=== PATIENT | male | born 1935 | race Caucasian/White ===

== ENCOUNTER 2018-12-15 12:08 | Inpatient (IN) ==
[2018-12-15] MEDS ORDERED: Isovue-370 500 ML BOTTLE IVP ONE (12:33)
[2018-12-15] MEDS ORDERED: 0.9 % Sodium Chloride 1,000 ML IVC ONE (12:34)
--- NOTE | 2018-12-15 12:52 | Emergency Department Note ---
Disposition Clinical Impression: Perianal abscess Disposition: Admitted As Inpatient Condition: Undetermined Time of Disposition: 15:47 Skin/Abscess/FB HPI Chief complaint: ED Skin/Abscess/Foreign Body Stated complaint: perirectal abscess Time Seen by Provider: 12/15/18 12:15 Source: patient Mode of arrival: ambulatory Limitations: no limitations Nursing Notes Reviewed: Yes Vital Signs Reviewed: Yes HPI Narrative: 83-year-old male arrives to the emergency department complaining of pain around his rectum. The patient states he started having some constipation and pain with defecation as well as a burning sensation that started a few days ago. Is progressively worsened. The patient states he put a salve on it which did not help. Went to urgent care earlier today and was diagnosed with a perirectal abscess was sent here to the emergency part for evaluation. The patient is in a large amount of pain with any movement or sitting down secondary to the swelling and pain. The patient was noted to be tachycardic but he has been afebrile. The patient is otherwise uncomfortable on evaluation in the room but denies any other complaints at this time. He states he has never had abscesses like this in the past. No history of inflammatory bowel disease. Home Medications Medication Instructions Recorded Confirmed Cholecalciferol (Vitamin D3) 1,000 unit PO DAILY 03/15/16 12/15/18 [Vitamin D3] Docusate [Colace] 100 mg PO DAILY 05/31/16 12/15/18 Fish Oil 1 cap PO DAILY 05/31/16 12/15/18 Vitamin B Complex 1 each PO DAILY 12/05/16 12/15/18 Atorvastatin [Lipitor] 10 mg PO HS 12/15/18 12/15/18 Lisinopril [Zestril] 5 mg PO DAILY 12/15/18 12/15/18 Allergies Allergy/AdvReac Type Severity Reaction Status Date / Time No Known Allergies Allergy Verified 06/20/17 18:22 All systems ED: reviewed and negative except as stated. Constitutional: Denies: fever, chills, weakness ENT ED: Denies: dysphagia Cardiovascular: Denies: chest pain Respiratory: Denies: dyspnea Gastrointestinal: Reports: constipation. Denies: abdominal pain, nausea, vomiting, hematemesis, melena, hematochezia Genitourinary: Denies: urgency, dysuria Musculoskeletal: Denies: back pain Integumentary: Denies: rash Neurological: Denies: headache Past Medical History - Past Medical History Attestation: Yes The following information was validated with the patient. Source: patient, old records reviewed Medical history: Reports: hypertension Surgical history: Reports: no surgical history Psychiatric history: Reports: no psych history - Social History Smoking Status: Never smoker Smokeless Tobacco Status: No Alcohol use: Reports: occasionally Drug use: Reports: none Physical Exam - General Limitations: no limitations General appearance: alert, in no apparent distress - Head Head exam: atraumatic, normocephalic, normal inspection - Eye Eye exam: Present: normal appearance, PERRL, EOMI - ENT ENT exam: normal exam, normal oropharynx, mucous membranes moist - Neck Neck exam: Present: normal inspection, full ROM, trachea midline - Chest Chest inspection: Present: normal inspection, symmetric chest wall rise - Respiratory Respiratory exam: Present: normal lung sounds bilaterally - Cardiovascular Cardiovascular exam: Present: normal rhythm, tachycardia - Abdominal Exam Abdominal exam: Present: soft, Non-Tender. Absent: tenderness, distention, guarding, rebound, rigidity - Rectal Exam Rectal exam: Present: tenderness, other (Patient has a large indurated area on the right side of his perirectal region. It is roughly 10-15 cm total in length and 4-6 cm in width. Very tender to palpation. Obvious fluid collection noted within. Noted within the perirectal region.) - Extremities Exam Extremities exam: Present: normal inspection, full ROM, normal capillary refill. Absent: tenderness, pedal edema - Neurological Exam Neurological exam: Present: alert, oriented X3 - Skin Skin exam: Present: warm, dry, intact, normal color Course - Reevaluation(s) Reevaluation #1: CT scan of the patient's abdomen and pelvis reveals a 8.8 x 3.4 x 10.8 cm abscess across his midline in the perianal region. Patient was found to have a leukocytosis of 31,000. He was started on Vancomycin and Zosyn here in the emergency department. Consultation with general surgery. Disposition is pending on conversation with general surgery. Time: 14:38 - Consultations Consultation #1: Patient case was discussed with Dr. Wylie in general surgery. He will see the patient in ED for evaluation. Requested coagulation studies. These were ordered. Disposition pending per discussion with surgery. Time: 14:38 Vital Signs Temperature 98.2 F 12/15/18 12:08 Pulse Rate 108 12/15/18 12:08 Respiratory Rate 18 12/15/18 12:08 Blood Pressure 159/79 12/15/18 12:08 O2 Sat by Pulse Oximetry 99 12/15/18 12:08 Temperature 98.2 F 12/15/18 12:08 Pulse Rate 91 12/15/18 15:33 Respiratory Rate 18 12/15/18 15:33 Blood Pressure 123/61 12/15/18 15:33 O2 Sat by Pulse Oximetry 100 12/15/18 15:33 Oxygen Delivery Oxygen Delivery Room Air Skin/Abscess/Foreign Body - MDM Narrative Medical decision making narrative: Patient's workup in the emergency department demonstrates a very large perianal abscess. Given the fact that it crosses midline combined with the patient's fever that he later disclose, she was started on IV antibiotics and will be admitted to general surgery service. Accepted by Dr. Wylie. No further recommendations at this time. - Lab Data Lab results reviewed: Yes I reviewed the patient's lab results. Result diagrams: 12/15/18 12:40 12/15/18 12:40 Lab Results 12/15/18 12/15/18 12/15/18 Range/Units 12:40 12:40 12:40 WBC 31.9 H* (4.3-11.1) K/mcL RBC 3.99 L (4.19-5.50) M/mcL Hgb 12.0 L (12.9-16.9) g/dL Hct 37.3 L (37.5-50.1) % MCV 93.5 (83.0-100.0) fL MCH 30.1 (28.0-33.3) pg MCHC 32.2 (31.6-35.5) g/dL RDW 13.5 (11.5-14.5) % Plt Count 383 (140-400) K/mcL MPV 9.6 (9.4-12.4) fL Immature Gran % 0.9 (0-4) % Seg Neutrophils % 65.3 % Lymphocytes % 26.3 % Monocytes % 7.4 % Eosinophils % 0.0 % Basophils % 0.1 % Neutrophils # 20.8 H (1.6-8.9) K/mcL Lymphocytes # 8.4 H (0.6-4.6) K/mcL Monocytes # 2.4 H (0.0-1.3) K/mcL Eosinophils # 0.0 (0.0-0.6) K/mcL Basophils # 0.0 (0.0-0.2) K/mcL Reactive Lymphocytes Present A (Not Present) Platelet Estimate Normal (Normal) PT (9.4-12.1) Seconds INR APTT (26.0-36.0) Seconds Sodium 133 L (136-145) mEq/L Potassium 4.0 (3.5-5.1) mEq/L Chloride 98 (98-107) mEq/L Carbon Dioxide 27 (23-29) mEq/L BUN 20 (8-23) mg/dL Creatinine 0.94 (0.70-1.30) mg/dL Est GFR ( Amer) > 60 (> 60) Est GFR (Non-Af Amer) > 60 (> 60) BUN/Creatinine Ratio 21 (6-26) Glucose 131 H (70-105) mg/dL Calculated Osmolality 280 (280-300) Lactic Acid 1.4 (0.5-2.2) mmol/L Calcium 9.4 (8.6-10.3) mg/dL 12/15/18 Range/Units 12:40 WBC (4.3-11.1) K/mcL RBC (4.19-5.50) M/mcL Hgb (12.9-16.9) g/dL Hct (37.5-50.1) % MCV (83.0-100.0) fL MCH (28.0-33.3) pg MCHC (31.6-35.5) g/dL RDW (11.5-14.5) % Plt Count (140-400) K/mcL MPV (9.4-12.4) fL Immature Gran % (0-4) % Seg Neutrophils % % Lymphocytes % % Monocytes % % Eosinophils % % Basophils % % Neutrophils # (1.6-8.9) K/mcL Lymphocytes # (0.6-4.6) K/mcL Monocytes # (0.0-1.3) K/mcL Eosinophils # (0.0-0.6) K/mcL Basophils # (0.0-0.2) K/mcL Reactive Lymphocytes (Not Present) Platelet Estimate (Normal) PT 14.0 H (9.4-12.1) Seconds INR 1.2 APTT 27.2 (26.0-36.0) Seconds Sodium (136-145) mEq/L Potassium (3.5-5.1) mEq/L Chloride (98-107) mEq/L Carbon Dioxide (23-29) mEq/L BUN (8-23) mg/dL Creatinine (0.70-1.30) mg/dL Est GFR ( Amer) (> 60) Est GFR (Non-Af Amer) (> 60) BUN/Creatinine Ratio (6-26) Glucose (70-105) mg/dL Calculated Osmolality (280-300) Lactic Acid (0.5-2.2) mmol/L Calcium (8.6-10.3) mg/dL - Radiology Data Radiology results reviewed: Yes I reviewed the patient's radiology results. Abdomen/Pelvis CT 12/15/18 12:33 IMPRESSION: Very large perianal abscess(es) predominantly on the right. No acute intra-abdominal or intrapelvic process evident. Calcific atherosclerotic disease aorta. D/ / Michi Galan / Michi Galan Interpreting Provider: Michi Galan Attestation Statement - Attestation Attestation: I, Kelby Duenas, examined this patient and my medical decision-making was reviewed with the MACHINE TOOL BUILDER/PA/Advanced Practice Nurse/Resident Physician. I agree with the documented findings, disposition and treatment plan as described except to the extent set forth below. 83-year-old male presents emergency Department with concerns of pain in the rectal area. Patient states that he developed pain with sitting, walking, bowel movements over the past 3-4 days. Patient thought initially that it was a thrombosed hemorrhoid however he does not have a history of previous hemorrhoids. Patient reported a fever intermittent over the past 2 days which reached a MAXIMUM TEMPERATURE of 102.3. Patient was afebrile on initial evaluation emergency department. Patient has palpable area of induration and fluctuance on rectal exam. CT of the abdomen and pelvis revealed large abscess. Patient was updated regarding CT results. We spoke with the surgeon regarding the patient's case and presentation who evaluated at bedside and will take him to the OR. Vancomycin and Zosyn were started in the emergency department.
[2018-12-15] MEDS ORDERED: *HR* FentaNYL (PF) 100 MCG/2 ML VIAL IVP ONE (12:57)
[2018-12-15 12:58] LABS: Immature Granulocytes % 0.9 % (0-4); Monocytes % 7.4 %
[2018-12-15 12:59] LABS: Basophils % 0.1 %; Hematocrit 37.3 % (37.5-50.1); Lymphocytes # 8.4 K/mcL (0.6-4.6); Lymphocytes % 26.3 %; Mean Corpuscular HGB Conc 32.2 g/dL (31.6-35.5); Mean Corpuscular Hemoglobin 30.1 pg (28.0-33.3); Mean Corpuscular Volume 93.5 fL (83.0-100.0); Mean Platelet Volume 9.6 fL (9.4-12.4); Monocytes # 2.4 K/mcL (0.0-1.3); Neutrophils # 20.8 K/mcL (1.6-8.9); Platelet Count 383 K/mcL (140-400); Red Blood Count 3.99 M/mcL (4.19-5.50); Red Cell Distribution Width 13.5 % (11.5-14.5); Segmented Neutrophils % 65.3 %
[2018-12-15 13:09] LABS: White Blood Count 31.9 K/mcL (4.3-11.1)
[2018-12-15 13:11] LABS: Platelet Estimate Normal (Normal); Reactive Lymphocytes Present (Not Present)
[2018-12-15 13:16] LABS: BUN/Creatinine Ratio 21 (6-26); Blood Urea Nitrogen 20 mg/dL (8-23); Calcium 9.4 mg/dL (8.6-10.3); Carbon Dioxide 27 mEq/L (23-29); Chloride 98 mEq/L (98-107); Glucose 131 mg/dL (70-105); Osmolality,Calculated 280 (280-300); Sodium 133 mEq/L (136-145); eGFR For African Americans > 60 (> 60); eGFR For Non-African Americans > 60 (> 60)
[2018-12-15] MEDS ORDERED: Piperacillin/Tazobactam 3.375 GM in 0.9 % Sodium Chloride Mini Bag 100 ML IVPB ONE (14:37)
[2018-12-15 14:55] LABS: INR 1.2
[2018-12-15 14:58] LABS: Activated Partial Thrombo Time 27.2 Seconds (26.0-36.0)
[2018-12-15] MEDS ORDERED: *HR* Rocuronium Bromide 50 MG/5 ML VIAL ONE (15:29)
[2018-12-15] MEDS ORDERED: *HR* FentaNYL (PF) 100 MCG/2 ML VIAL ONE ×2 (15:29→17:26)
[2018-12-15] MEDS ORDERED: Lidocaine -MPF 2% 2 ML VIAL ONE (15:29)
[2018-12-15] MEDS ORDERED: *HR* Succinylcholine 200 MG/10 ML VIAL IVP ONE (15:29)
[2018-12-15] MEDS ORDERED: *HR* Propofol 200 MG/20 ML VIAL IVP ONE (15:29)
[2018-12-15] MEDS ORDERED: Lidocaine -MPF 4% 5 ML AMPUL ONE (15:29)
--- NOTE | 2018-12-15 15:49 | Acute Care Surgery H&P ---
<Aston Wylie - Last Filed: 12/15/18 16:07> Date of Encounter: 12/15/18 History of Present Illness HPI: Mr. Dexter is a 83 year old male Medications and Allergies Cholecalciferol (Vitamin D3) [Vitamin D3] 1,000 unit PO DAILY 03/15/16 [History] Docusate [Colace] 100 mg PO DAILY 05/31/16 [History] Fish Oil 1 cap PO DAILY 05/31/16 [History] Vitamin B Complex 1 each PO DAILY 12/05/16 [History] Atorvastatin [Lipitor] 10 mg PO HS 12/15/18 [History] Lisinopril [Zestril] 5 mg PO DAILY 12/15/18 [History] Allergy/AdvReac Type Severity Reaction Status Date / Time No Known Allergies Allergy Verified 06/20/17 18:22 Review of Systems All systems PM: The remainder of the systems were reviewed and are negative General Surgery Exam Initial Vital Signs Temp Pulse Resp BP Pulse Ox 98.2 F 108 18 159/79 99 12/15/18 12:08 12/15/18 12:08 12/15/18 12:08 12/15/18 12:08 12/15/18 12:08 Results - Labs 12/15/18 12:40 12/15/18 12:40 Abnormal lab results WBC 31.9 K/mcL (4.3-11.1) H* 12/15/18 12:40 RBC 3.99 M/mcL (4.19-5.50) L 12/15/18 12:40 Hgb 12.0 g/dL (12.9-16.9) L 12/15/18 12:40 Hct 37.3 % (37.5-50.1) L 12/15/18 12:40 20.8 K/mcL (1.6-8.9) H 12/15/18 12:40 8.4 K/mcL (0.6-4.6) H 12/15/18 12:40 2.4 K/mcL (0.0-1.3) H 12/15/18 12:40 Present (Not Present) A 12/15/18 12:40 PT 14.0 Seconds (9.4-12.1) H 12/15/18 12:40 Sodium 133 mEq/L (136-145) L 12/15/18 12:40 Glucose 131 mg/dL (70-105) H 12/15/18 12:40 Diabetes panel 12/15/18 Range/Units 12:40 Sodium 133 L (136-145) mEq/L Potassium 4.0 (3.5-5.1) mEq/L Chloride 98 (98-107) mEq/L Carbon Dioxide 27 (23-29) mEq/L BUN 20 (8-23) mg/dL Creatinine 0.94 (0.70-1.30) mg/dL Glucose 131 H (70-105) mg/dL Calcium 9.4 (8.6-10.3) mg/dL Calcium panel 12/15/18 Range/Units 12:40 Calcium 9.4 (8.6-10.3) mg/dL Pituitary panel 12/15/18 Range/Units 12:40 Sodium 133 L (136-145) mEq/L Potassium 4.0 (3.5-5.1) mEq/L Chloride 98 (98-107) mEq/L Carbon Dioxide 27 (23-29) mEq/L BUN 20 (8-23) mg/dL Creatinine 0.94 (0.70-1.30) mg/dL Glucose 131 H (70-105) mg/dL Calcium 9.4 (8.6-10.3) mg/dL Adrenal panel 12/15/18 Range/Units 12:40 Sodium 133 L (136-145) mEq/L Potassium 4.0 (3.5-5.1) mEq/L Chloride 98 (98-107) mEq/L Carbon Dioxide 27 (23-29) mEq/L BUN 20 (8-23) mg/dL Creatinine 0.94 (0.70-1.30) mg/dL Glucose 131 H (70-105) mg/dL Calcium 9.4 (8.6-10.3) mg/dL All other labs normal. - Attending Attestation I examined this patient and my medical decision-making was reviewed with the Resident Physician. I agree with the documented findings, disposition and parris tment plan as described except to the extent set forth below. I personally reviewed the above assessment and evaluation with the resident and was present and agree with the above plan. Patient has had symptoms of a knot and pressure sensation in the buttock region for week. He is been having symptoms of constipation and has not had a bowel movement in a week. He normally has a bowel movement 1-2 times a day. The pain and pressure sensation worsened over the next several days and he presented himself to the emergency room. He does have a history of CLL and has a baseline elevation of his white count around 20,000 range. His current white count is approximately 34,000. CT scan was personally reviewed by me (images and report) which demonstrates a perianal/perirectal abscess. Our plan is to start IV fluids and IV antibiotics and perform an incision and drainage. Both patient and family were agree with the above plan. <Madyson Marte - Last Filed: 12/15/18 16:21> Date of Encounter: 12/15/18 Time of Encounter: 15:32 Assessment and Plan (1) Perianal abscess Current Visit: Yes Status: Acute Presents with one-week history of rectal pain, perirectal abscess which has been progressively enlarging Admits to fever at home at 102, tachycardic at 108 on presentation, afebrile, leukocytosis at 31.9 CT abdomen pelvis-. Large perianal abscesses predominantly on the right, measures on right 3.48.810.8 cm, a second component extends across midline into the left perianal region measuring 1.73.9 cm Blood cultures pending Antibiotic coverage- Zosyn, 1 dose of vancomycin Nothing by mouth Pain control Nausea control Continue to trend labs Patient to go to the OR for incision and drainage of perirectal abscess The assessment and plan as outlined above was discussed with the patient and/or family members who expressed understanding and agreement. All questions were answered. (2) Sepsis Current Visit: Yes Status: Acute Suspected Secondary to perirectal abscess Reported temperature of 102 at home, tachycardic on presentation at 108, leukocytosis at 31.9 Patient does have a history of CLL with elevated baseline white blood cell count, patient unsure of baseline and only 1 previous visit to [facility] where white blood cell count was 19.5 Patient received fluid bolus Antibiotic coverage with vancomycin, Zosyn Pending incision and drainage of abscess The assessment and plan as outlined above was discussed with the patient and/or family members who expressed understanding and agreement. All questions were answered. Qualifiers: Sepsis type: sepsis due to unspecified organism Qualified Code(s): A41.9 - Sepsis, unspecified organism (3) Personal history of CLL (chronic lymphocytic leukemia) Current Visit: Yes Status: Acute The patient admits to a history of CLL Unknown baseline white blood cell count Continue to monitor The assessment and plan as outlined above was discussed with the patient and/or family members who expressed understanding and agreement. All questions were answered. (4) HTN (hypertension) Current Visit: Yes Status: Acute Resume home medication The assessment and plan as outlined above was discussed with the patient and/or family members who expressed understanding and agreement. All questions were answered. Qualifiers: Hypertension type: essential hypertension Qualified Code(s): I10 - Essential (primary) hypertension (5) Hyperlipidemia Current Visit: Yes Status: Acute Resume home medication The assessment and plan as outlined above was discussed with the patient and/or family members who expressed understanding and agreement. All questions were answered. Qualifiers: Hyperlipidemia type: unspecified Qualified Code(s): E78.5 - Hyperlipidemia, unspecified (6) DVT prophylaxis Current Visit: Yes Status: Acute Subcutaneous heparin The assessment and plan as outlined above was discussed with the patient and/or family members who expressed understanding and agreement. All questions were answered. History of Present Illness Chief complaint: Rectal pain, constipation HPI: Mr. Dexter is a 83 year old male presenting to the ED with chief complaint of perirectal pain as well as constipation. He has a past medical history of CLL, hypertension, hyperlipidemia. He has a past surgical history of colonoscopy which was normal at age 77, left knee scope, bilateral shoulder r eplacements, and reconstruction of right ear. Daily medications include lisinopril, statin, fish oil, Colace, vitamin B complex. For social history he denies tobacco use, admits to one or 2 beers per month and denies illicit drug use. He denies allergies to any medications. He denies pertinent family history. The patient states that one week ago he began to experience rectal pain described as a burning sensation as well as constipation. He tried Dulcolax as well as medicated wipes for hemorrhoids which failed to improve symptoms. Over the course of the week the pain and constipation continued to progress as well as abscess formation which began on right perirectal side and continued to enlarge to be bilateral and exquisitely tender. He states that the pain which is worse on the right is described as 9 out of 10, constant, aching without radiation. It is exacerbated by ambulation, straining for bowel movements, and lying on the right side. The pain is alleviated by nothing. He also admits to fevers, with measured temperature at home at 102, chills, anorexia. He states he is unable to sit due to the pain. For his bowel habits, he typically has 1 bowel movement per day. However over the course of the past week he was unable to have a bowel movement as it worsened the pain, he did try Dulcolax again last night and was able to pass 2 small soft stools. He denies hematochezia or melena. On presentation to the emergency department, patient afebrile, tachycardic at 108. A CBC, BMP, coags were drawn. Labs significant for leukocytosis at 31.9. On discussion with the patient, he believes he has had leukocytosis due to CLL but is unsure of baseline. Review of chart shows white blood cell count of 19.5 previously. He has anemia, hemoglobin 12 and review of chart shows this to be chronic. He also has some mild hyponatremia with sodium at 133. No lactic acid osis. Abdominal pelvis CT was performed which revealed a very large perianal abscess predominantly on the right which measures 3.48.810.8 cm with a second component which extends across the midline into the left perianal region which measures 1.73.9 cm. Past Med Surg Social Fam HX - Past Medical History Medical history: hypertension Psychiatric history: no psych history - Past Surgical History Surgical History: no surgical history - Social History Smoking Status: Never smoker Smokeless Tobacco Status: No Alcohol use: occasionally Drug use: none Review of Systems All systems PM: The remainder of the systems were reviewed and are negative - Constitutional anorexia, chills, fever(s) - EENT Nose, mouth and throat: no abnormal hearing, no dysphagia, no headache(s) - Cardiovascular no chest pain, no dyspnea, no edema, no orthopnea, no palpitations, no syncope - Respiratory no cough, no dyspnea - Gastrointestinal constipation, no abdominal pain, no hematochezia, no melena, no nausea, no vomiting - Genitourinary difficulty urinating, urinary urgency, no dysuria, no hematuria - Musculoskeletal no arthralgias, no myalgias, no numbness - Integumentary no rash, no sores, no swelling - Neurological no dizziness, no focal weakness, no paresthesias - Psychiatric no anxiety, no depression - Endocrine no cold intolerance, no heat intolerance - Hematologic/Lymphatic easy bruising, no easy bleeding General Surgery Exam Initial Vital Signs Temp Pulse Resp BP Pulse Ox 98.2 F 108 18 159/79 99 12/15/18 12:08 12/15/18 12:08 12/15/18 12:08 12/15/18 12:08 12/15/18 12:08 - General physical appearance well developed, well nourished, moderate pain - Eyes PERRL, normal ocular movement - ENT normal nares, normal mucosa, no hearing loss, no congestion, Other (Prior surgical reconstruction of right ear) - Neck no bruits, trachea midline, no lymphadectomy, no venous distension - Respiratory normal expansion, normal respiratory effort, clear to auscultation - Cardiovascular Cardiovascular exam: Present: RRR, no murmurs/rubs/gallops. Absent: JVD - Abdomen Abdomen general surgery: Present: bowel sounds present, soft, non tender - Rectum Rectum: Present: other (Perirectal abscess present, bilateral, exquisitely painful, indurated, erythematous extends to include perineum) - Integumentary Integumentary general surgery: Present: warm and dry, no abnormal pigmentation - Neurologic Present: CN 2-12 grossly intact, normal coordination, normal sensation - Musculoskeletal Present: normal posture - Psychiatric Psychiatric general surgery: Present: appropriate, oriented to person, oriented to place, oriented to time, speech is normal, memory intact Results - Labs 12/15/18 12:40 12/15/18 12:40 Abnormal lab results WBC 31.9 K/mcL (4.3-11.1) H* 12/15/18 12:40 RBC 3.99 M/mcL (4.19-5.50) L 12/15/18 12:40 Hgb 12.0 g/dL (12.9-16.9) L 12/15/18 12:40 Hct 37.3 % (37.5-50.1) L 12/15/18 12:40 20.8 K/mcL (1.6-8.9) H 12/15/18 12:40 8.4 K/mcL (0.6-4.6) H 12/15/18 12:40 2.4 K/mcL (0.0-1.3) H 12/15/18 12:40 Present (Not Present) A 12/15/18 12:40 PT 14.0 Seconds (9.4-12.1) H 12/15/18 12:40 Sodium 133 mEq/L (136-145) L 12/15/18 12:40 Glucose 131 mg/dL (70-105) H 12/15/18 12:40 Diabetes panel 12/15/18 Range/Units 12:40 Sodium 133 L (136-145) mEq/L Potassium 4.0 (3.5-5.1) mEq/L Chloride 98 (98-107) mEq/L Carbon Dioxide 27 (23-29) mEq/L BUN 20 (8-23) mg/dL Creatinine 0.94 (0.70-1.30) mg/dL Glucose 131 H (70-105) mg/dL Calcium 9.4 (8.6-10.3) mg/dL Calcium panel 12/15/18 Range/Units 12:40 Calcium 9.4 (8.6-10.3) mg/dL Pituitary panel 12/15/18 Range/Units 12:40 Sodium 133 L (136-145) mEq/L Potassium 4.0 (3.5-5.1) mEq/L Chloride 98 (98-107) mEq/L Carbon Dioxide 27 (23-29) mEq/L BUN 20 (8-23) mg/dL Creatinine 0.94 (0.70-1.30) mg/dL Glucose 131 H (70-105) mg/dL Calcium 9.4 (8.6-10.3) mg/dL Adrenal panel 12/15/18 Range/Units 12:40 Sodium 133 L (136-145) mEq/L Potassium 4.0 (3.5-5.1) mEq/L Chloride 98 (98-107) mEq/L Carbon Dioxide 27 (23-29) mEq/L BUN 20 (8-23) mg/dL Creatinine 0.94 (0.70-1.30) mg/dL Glucose 131 H (70-105) mg/dL Calcium 9.4 (8.6-10.3) mg/dL All other labs normal.
--- NOTE | 2018-12-15 16:32 | Anesthesia Evaluation PreOp ---
Date of Encounter: 12/15/18 Time of Encounter: 16:27 - Past History Planned Operation: I&D of peranal abcess Cardiac History: HTN, Hyperlipidemia Pulmonary History: Denies Any Significant HX PERSONNEL INTERVIEWER History: Denies Any Significant HX Other Medical History: Other (CLL) Anesthesia History: No Prior Anesthetic Complications, Past Anesthesia (rotator cuff repair) Alcohol Use: occasionally Drug use: none Medications and Allergies Cholecalciferol (Vitamin D3) [Vitamin D3] 1,000 unit PO DAILY 03/15/16 [History] Docusate [Colace] 100 mg PO DAILY 05/31/16 [History] Fish Oil 1 cap PO DAILY 05/31/16 [History] Vitamin B Complex 1 each PO DAILY 12/05/16 [History] Atorvastatin [Lipitor] 10 mg PO HS 12/15/18 [History] Lisinopril [Zestril] 5 mg PO DAILY 12/15/18 [History] Allergy/AdvReac Type Severity Reaction Status Date / Time No Known Allergies Allergy Verified 06/20/17 18:22 - Meds/Allergy Pre-op Review Medications Reviewed: Yes Allergies Reviewed: Yes Beta Blockers on Current Med List: No Anesthesia Results - Labs 12/15/18 12:40 12/15/18 12:40 Anesthesia Exam Vital Signs/O2 Sat, Most Current Temp Pulse Resp BP Pulse Ox 98.2 F 91 18 121/59 100 12/15/18 12:08 12/15/18 15:33 12/15/18 15:33 12/15/18 16:11 12/15/18 15:33 Weight: 86kg NPO (# of Hours): >8 - HEENT Pupil (Motor): Pupils equal, EOMI Mallampati: II Teeth: Normal Oral Opening: Greater than 3 - PERSONNEL INTERVIEWER LOC: Oriented PERSONNEL INTERVIEWER Motor: Normal RUE, Normal LUE, Normal RLE, Normal LLE, Normal Face PERSONNEL INTERVIEWER Sensory: Normal: RUE, LUE, RLE, LLE, Face - Cardiac Rhythm: Regular - Pulmonary Breath Sounds: bilateral Clear Respiratory Effort: Symmetrical Anesthesia Assess/Plan ASA Score: 3 Level of consciousness: Cooperative Anesthetic Plan: General Monitoring Plan: Standard Monitors Recovery Plan: PACU
[2018-12-15] MEDS ORDERED: Ringers Solution, Lactated 1,000 ML IVC SCH (16:45)
[2018-12-15] MEDS ORDERED: *HR* FentaNYL (PF) 100 MCG/2 ML VIAL IVP PRN (16:45)
[2018-12-15] MEDS ORDERED: Ondansetron 4 MG/2 ML VIAL IVP ONE (16:45)
[2018-12-15] MEDS ORDERED: *HR* Meperidine 25 MG/ML SYRINGE IVP PRN (16:45)
[2018-12-15] MEDS ORDERED: *HR* OxyCODONE Immed Rel 5 MG TABLET PO PRN (16:45)
[2018-12-15] MEDS ORDERED: Dexamethasone 4 MG/ML VIAL ONE (17:07)
[2018-12-15] MEDS ORDERED: Ondansetron 4 MG/2 ML VIAL ONE (17:07)
--- NOTE | 2018-12-15 17:31 | Operative Note ---
Date of procedure: 12/15/18 Pre-op diagnosis: Perianal/perineal abscess Post-op diagnosis: same Procedure: Incision and drainage of perianal abscess Anesthesia: AURA Surgeon: Aston Wylie Was there an optometric assistant present: No Estimated blood loss (cc): 12 Specimen: perianal abscess Condition: stable Disposition: PACU Procedure in Detail: Date of surgery: 12/15/18 After properly identifying the patient, the patient was brought to the operating room and placed in the supine position. After proper IV sedation was achieved followed by general endotracheal intubation, the patient was placed in a high lithotomy position and the perianal tissue particularly the exposed but not areas bilaterally and perineum were prepped and draped in a normal sterile fashion. A timeout was performed noting the patient's name and type of procedure to be performed. The anal area and buttocks demonstrated bogginess and edema with significant swelling on the right buttocks greater than the left. The swelling extended up towards the perineum and a little bit over and across to the left side anteriorly more so than posteriorly. Palpation approximately 3-4 cm is away from the anus at around the 8 o'clock position along the buttocks revealed an area for possible incision and drainage. A 19-gauge needle was placed through the skin with immediate removal of purulent exudate. This was withdrawn and submitted for culture and a 15 blade scalpel was then used to make an incision approximately 4-5 cm in length in a vertical fashion. Bovie cauterization was used to dissected through the subcutaneous tissue until the pocket was entered with immediate drainage of purulent exudate. This was immediately suctioned without difficult. Finger palpation within the cavity allowed for breaking up of loculations. The pocket was copiously irrigated with normal saline solution. Also finger palpation demonstrated that the tract extended in a horseshoe-like fashion anteriorly and then going across the perineum into the left side mainly in the upper area. This region was also irrigated as well. Kerlix was brought onto the field and dipped in Betadine. This was placed within the wound cavity and covered with 4 x 4 gauze and an ABD. Needle, sponge, and instrument counts were correct 2 and the patient was transported to the stretcher in a supine position, extubated in the operating room without complication, and transported to the recovery room stable condition.
[2018-12-15] MEDS ORDERED: Acetaminophen IV 1,000 MG/100 ML INFUS..BTL ONE (17:47)
[2018-12-15] MEDS ORDERED: *HR* Heparin 5,000 UNIT/ML VIAL SQ SCH (18:00)
--- NOTE | 2018-12-15 18:15 | Anesthesia Evaluation Post Op ---
Date of Encounter: 12/15/18 Time of Encounter: 18:15 - Vital Signs Vital Signs: Vital Signs/O2 Sat, Most Current Temp Pulse Resp BP Pulse Ox 100.4 F H 80 16 114/56 97 12/15/18 17:45 12/15/18 18:05 12/15/18 18:05 12/15/18 18:05 12/15/18 18:05 - Lungs Lungs: Clear Ascult./Percussion - Airway Airway: Non-obstructed - Cardiovascular Regular Rate - Mental Status Mental Status: Alert & Oriented, Answers Appropriately - Pain Pain Scale: 0 Pain Scale used: Numeric (1 - 10) - Nausea Vomiting Nausea Vomiting: Not Present - Hydration Hydration: Ice chips - Discharge PostOp Status: Transfer Patient to floor
[2018-12-15] MEDS ORDERED: OXYCODONE Oral CONC 10 MG/0.5 ML ORAL.SYG SL PRN (18:29)
[2018-12-15] MEDS ORDERED: MORPHINE SUL Oral CONC 10 MG/0.5 ML ORAL.SYG SL PRN (18:29)
[2018-12-15] MEDS ORDERED: Ondansetron 4 MG/2 ML VIAL IVP PRN (18:29)
[2018-12-15] MEDS: 0.9 % Sodium Chloride 1,000 ML IVC SCH (19:01)
[2018-12-15] MEDS: *HR* Heparin 5,000 UNIT/ML VIAL SQ SCH (19:01)
[2018-12-15] MEDS: Acetaminophen IV 1,000 MG/100 ML INFUS..BTL IVPB SCH ×2 (20:07→23:56)
[2018-12-15] MEDS: Piperacillin/Tazobactam 3.375 GM in 0.9 % Sodium Chloride Mini Bag 100 ML IVPB SCH (23:57)
[2018-12-16] MEDS: 0.9 % Sodium Chloride 1,000 ML IVC SCH (06:08)
[2018-12-16] MEDS: Acetaminophen IV 1,000 MG/100 ML INFUS..BTL IVPB SCH ×3 (06:09→17:52)
[2018-12-16 07:38] LABS: Basophils % 0.1 %; Lymphocytes % 31.9 %
[2018-12-16 07:39] LABS: Hematocrit 29.6 % (37.5-50.1); Hemoglobin 9.5 g/dL (12.9-16.9); Immature Granulocytes % 0.7 % (0-4); Lymphocytes # 9.4 K/mcL (0.6-4.6); Mean Corpuscular HGB Conc 32.1 g/dL (31.6-35.5); Mean Corpuscular Hemoglobin 29.9 pg (28.0-33.3); Mean Corpuscular Volume 93.1 fL (83.0-100.0); Mean Platelet Volume 10.1 fL (9.4-12.4); Monocytes # 1.5 K/mcL (0.0-1.3); Monocytes % 5.1 %; Platelet Count 315 K/mcL (140-400); Red Blood Count 3.18 M/mcL (4.19-5.50); Red Cell Distribution Width 13.9 % (11.5-14.5); Segmented Neutrophils % 62.2 %; White Blood Count 29.5 K/mcL (4.3-11.1)
[2018-12-16 07:51] LABS: Neutrophils # 18.4 K/mcL (1.6-8.9)
[2018-12-16 07:54] LABS: Platelet Estimate Normal (Normal); Reactive Lymphocytes Present (Not Present)
[2018-12-16 07:55] LABS: BUN/Creatinine Ratio 22 (6-26); Blood Urea Nitrogen 20 mg/dL (8-23); Calcium 7.8 mg/dL (8.6-10.3); Carbon Dioxide 25 mEq/L (23-29); Chloride 104 mEq/L (98-107); Glucose 139 mg/dL (70-105); Osmolality,Calculated 291 (280-300); Potassium 4.4 mEq/L (3.5-5.1); Sodium 138 mEq/L (136-145); eGFR For African Americans > 60 (> 60); eGFR For Non-African Americans > 60 (> 60)
[2018-12-16] MEDS: Pantoprazole 40 MG VIAL IVP SCH (09:40)
[2018-12-16] MEDS: Piperacillin/Tazobactam 3.375 GM in 0.9 % Sodium Chloride Mini Bag 100 ML IVPB SCH ×2 (09:41→17:47)
--- NOTE | 2018-12-16 11:51 | AcuteCareSurgery Progress Note ---
<Aston Wylie - Last Filed: 12/16/18 20:42> Date of Encounter: 12/16/18 Objective Vital Signs - Last 8 Hours Temp Pulse Resp BP Pulse Ox 12/16/18 19:02 98.1 F 74 16 115/64 94 12/16/18 15:49 98.1 F 68 17 105/64 96 Intake and Output 12/16/18 12/16/18 12/16/18 07:59 15:59 23:59 Intake Total 1400 / 2340 820 / 2340 120 / 2340 Output Total 250 / 250 Balance 1150 / 2090 820 / 2090 120 / 2090 Intake: IV Fluids 1300 / 1400 100 / 1400 0.9 % Sodium Chloride 1,000 ML 1000 / 1000 @ 100 mls/hr IVC .Q10H [facility] Rx#: [id number] Ofirmev 1,000 mg/100 ml 1,000 200 / 200 mg In 100 ml @ 400 mls/hr IVPB Q6HR [facility] Rx#:[id number] Zosyn 3.375 GM In 0.9 % Sodium 100 / 200 100 / 200 Chloride (Mini-Bag +) 100 ML @ 25 mls/hr IVPB Q8HR [facility] Rx#: [id number] Oral 100 / 940 720 / 940 120 / 940 Output: Urine 250 / 250 Other: Meal Lunch Dinner Percent of Meal Consumed 100% 75% # Voids 1 # Bowel Movements 1 Weight 85.4 kg Patient Weight 12/16/18 23:59 Weight 85.4 kg - Labs 12/16/18 05:43 12/16/18 05:43 Diabetes panel 12/16/18 Range/Units 05:43 Sodium 138 (136-145) mEq/L Potassium 4.4 (3.5-5.1) mEq/L Chloride 104 (98-107) mEq/L Carbon Dioxide 25 (23-29) mEq/L BUN 20 (8-23) mg/dL Creatinine 0.89 (0.70-1.30) mg/dL Glucose 139 H (70-105) mg/dL Calcium 7.8 L (8.6-10.3) mg/dL Calcium panel 12/16/18 Range/Units 05:43 Calcium 7.8 L (8.6-10.3) mg/dL Pituitary panel 12/16/18 Range/Units 05:43 Sodium 138 (136-145) mEq/L Potassium 4.4 (3.5-5.1) mEq/L Chloride 104 (98-107) mEq/L Carbon Dioxide 25 (23-29) mEq/L BUN 20 (8-23) mg/dL Creatinine 0.89 (0.70-1.30) mg/dL Glucose 139 H (70-105) mg/dL Calcium 7.8 L (8.6-10.3) mg/dL Adrenal panel 12/16/18 Range/Units 05:43 Sodium 138 (136-145) mEq/L Potassium 4.4 (3.5-5.1) mEq/L Chloride 104 (98-107) mEq/L Carbon Dioxide 25 (23-29) mEq/L BUN 20 (8-23) mg/dL Creatinine 0.89 (0.70-1.30) mg/dL Glucose 139 H (70-105) mg/dL Calcium 7.8 L (8.6-10.3) mg/dL Consult Discharge Plan - Plan Referrals: NONE,PCP [Primary Care Provider] - - Attending Attestation I examined this patient and my medical decision-making was reviewed with the Resident Physician. I agree with the documented findings, disposition and treatment plan as described except to the extent set forth below. I reviewed the above assessment and evaluation with the resident and agree with the above plan. Dressing changes has been performed here at the bedside. We have repacked the wound with Betadine soaked Kerlix and recovery with 4 x 4 gauze. The patient does notice significant improvement in his pain postsurgery as compared to prior to surgery. We will continue dressing changes at this time. White count did decrease by 2 points. Continue with IV antibiotics. <Madyson Marte - Last Filed: 12/17/18 09:58> Date of Encounter: 12/17/18 Time of Encounter: 11:50 - Assessment and Plan (1) Perianal abscess Current Visit: Yes Status: Acute Presents with one-week history of rectal pain, perirectal abscess which has been progressively enlarging CT abdomen pelvis-. Large perianal abscesses predominantly on the right, measu res on right 3.48.810.8 cm, a second component extends across midline into the left perianal region measuring 1.73.9 cm Postoperative day 1 for incision and drainage of perirectal abscess Leukocytosis improving-currently 29.5 Blood cultures, abscess cultures pending Antibiotic coverage-Zosyn day 2 Pain control- oxycodone, morphine nausea control- Zofran GI prophylaxis- Protonix Bowel regimen- Colace IV fluids Incentive spirometry Regular diet Continue wound care with Kerlix packing changed daily. (2) Sepsis Current Visit: Yes Status: Acute Improved Infection source-perirectal abscess Patient remains afebrile, no tachycardia, no tachypnea Patient does have leukocytosis however he has a history of CLL and believes [facility] white blood cell count to be around 20 Continue antibiotic coverage with Zosyn day 2 Continue IV fluids Qualifiers: Sepsis type: sepsis due to unspecified organism Qualified Code(s): A41.9 - Sepsis, unspecified organism (3) Personal history of CLL (chronic lymphocytic leukemia) Current Visit: Yes Status: Acute The patient has a history of CLL Believes white blood cell count baseline to be around 20 Continue to monitor (4) HTN (hypertension) Current Visit: Yes Status: Acute Continue home medication lisinopril Qualifiers: Hypertension type: essential hypertension Qualified Code(s): I10 - Essential (primary) hypertension (5) DVT prophylaxis Current Visit: Yes Status: Acute Subcutaneous heparin Subjective Narrative: Patient seen and examined at bedside today. He states that he tolerated the incision and drainage well and that his pain is much improved and controlled. He denies any issues overnight. He admits to passing flatus but has not had a bowel movement. He denies fever, chills, nausea, vomiting, chest pain, shortness breath, abdominal pain, dysuria, calf pain. Objective Vital Signs - Last 8 Hours Temp Pulse Resp BP Pulse Ox 12/16/18 07:51 97.8 F 73 19 107/51 95 Intake and Output 12/15/18 12/16/18 12/16/18 23:59 07:59 15:59 Intake Total 200 / 1200 1300 / 1660 360 / 1660 Output Total 250 / 250 Balance 188 / 1188 1050 / 1410 360 / 1410 Intake: IV Fluids 200 / 1200 1200 / 1200 0.9 % Sodium Chloride 1,000 ML 1000 / 1000 @ 100 mls/hr IVC .Q[facility]H [facility] Rx#: [id number] Ofirmev 1,000 mg/100 ml 1,000 100 / 100 100 / 100 mg In 100 ml @ 400 mls/hr IVPB Q6HR [facility] Rx#:[id number] Zosyn 3.375 GM In 0.9 % Sodium 100 / 100 100 / 100 Chloride (Mini-Bag +) 100 ML @ 25 mls/hr IVPB Q8HR [facility] Rx#: [id number] Oral 100 / 460 360 / 460 Output: Urine 250 / 250 Estimated Blood Loss Other: Meal Breakfast Percent of Meal Consumed 100% # Voids 1 1 Weight 85.4 kg Patient Weight 12/16/18 23:59 Weight 85.4 kg - General physical appearance well developed, well nourished, no distress - Eyes PERRL, normal ocular movement - ENT normal nares, normal mucosa, no hearing loss, no congestion - Neck Neck exam: no masses, trachea midline, no venous distension - Respiratory normal expansion, normal respiratory effort, clear to percussion, clear to auscultation - Cardiovascular Cardiovascular exam: Present: RRR, no murmurs/rubs/gallops. Absent: JVD - Abdomen Abdomen: Present: bowel sounds present, soft, non tender. Absent: distended, guarding, rebound - Incision Incision: Present: draining, indurated (Improved), serous, open (Incision open, packing in place. Scant drainage on dressing. Minimal tenderness to palpation around incision). Absent: erythema - Integumentary no rash, no growths, no abnormal pigmentation - Neurologic normal coordination, normal sensation - Musculoskeletal normal posture - Psychiatric oriented to time, oriented to person, oriented to place, speech is normal, memor y intact - Labs 12/17/18 08:23 12/16/18 05:43 Diabetes panel 12/15/18 12/16/18 Range/Units 12:40 05:43 Sodium 133 L 138 (136-145) mEq/L Potassium 4.0 4.4 (3.5-5.1) mEq/L Chloride 98 104 (98-107) mEq/L Carbon Dioxide 27 25 (23-29) mEq/L BUN 20 20 (8-23) mg/dL Creatinine 0.94 0.89 (0.70-1.30) mg/dL Glucose 131 H 139 H (70-105) mg/dL Calcium 9.4 7.8 L (8.6-10.3) mg/dL Calcium panel 12/15/18 12/16/18 Range/Units 12:40 05:43 Calcium 9.4 7.8 L (8.6-10.3) mg/dL Pituitary panel 12/15/18 12/16/18 Range/Units 12:40 05:43 Sodium 133 L 138 (136-145) mEq/L Potassium 4.0 4.4 (3.5-5.1) mEq/L Chloride 98 104 (98-107) mEq/L Carbon Dioxide 27 25 (23-29) mEq/L BUN 20 20 (8-23) mg/dL Creatinine 0.94 0.89 (0.70-1.30) mg/dL Glucose 131 H 139 H (70-105) mg/dL Calcium 9.4 7.8 L (8.6-10.3) mg/dL Adrenal panel 12/15/18 12/16/18 Range/Units 12:40 05:43 Sodium 133 L 138 (136-145) mEq/L Potassium 4.0 4.4 (3.5-5.1) mEq/L Chloride 98 104 (98-107) mEq/L Carbon Dioxide 27 25 (23-29) mEq/L BUN 20 20 (8-23) mg/dL Creatinine 0.94 0.89 (0.70-1.30) mg/dL Glucose 131 H 139 H (70-105) mg/dL Calcium 9.4 7.8 L (8.6-10.3) mg/dL
[2018-12-16] MEDS: *HR* Heparin 5,000 UNIT/ML VIAL SQ SCH ×3 (17:46→18:01)
[2018-12-17] MEDS: Acetaminophen IV 1,000 MG/100 ML INFUS..BTL IVPB SCH ×4 (00:26→19:03)
[2018-12-17] MEDS: Piperacillin/Tazobactam 3.375 GM in 0.9 % Sodium Chloride Mini Bag 100 ML IVPB SCH ×3 (00:27→16:05)
[2018-12-17] MEDS: 0.9 % Sodium Chloride 1,000 ML IVC SCH ×2 (00:38→07:49)
[2018-12-17] MEDS: *HR* Heparin 5,000 UNIT/ML VIAL SQ SCH ×2 (05:50→19:03)
[2018-12-17] MEDS: Pantoprazole 40 MG VIAL IVP SCH (08:19)
[2018-12-17 08:59] LABS: Mean Corpuscular Hemoglobin 30.4 pg (28.0-33.3)
[2018-12-17 09:00] LABS: Hematocrit 31.1 % (37.5-50.1); Hemoglobin 10.1 g/dL (12.9-16.9); Mean Corpuscular HGB Conc 32.5 g/dL (31.6-35.5); Mean Corpuscular Volume 93.7 fL (83.0-100.0); Mean Platelet Volume 9.5 fL (9.4-12.4); Nucleated Red Blood Cells 0.1 /100 WBC (0); Platelet Count 392 K/mcL (140-400); Red Blood Count 3.32 M/mcL (4.19-5.50); Red Cell Distribution Width 14.2 % (11.5-14.5); White Blood Count 28.5 K/mcL (4.3-11.1)
[2018-12-17 09:51] LABS: Lymphocytes # 17.7 K/mcL (0.6-4.6); Monocytes # 0.6 K/mcL (0.0-1.3); Neutrophils # 10.3 K/mcL (1.6-8.9); Reactive Lymphocytes Present (Not Present); Smudge Cells Present (Not Present)
[2018-12-17 09:52] LABS: Platelet Clumps Few (Not Present); Platelet Estimate Normal (Normal)
--- NOTE | 2018-12-17 10:41 | AcuteCareSurgery Progress Note ---
<Madyson Marte - Last Filed: 12/17/18 11:46> Date of Encounter: 12/17/18 Time of Encounter: 10:40 - Assessment and Plan (1) Perianal abscess Current Visit: Yes Status: Acute Presents with one-week history of rectal pain, perirectal abscess which has been progressively enlarging CT abdomen pelvis-. Large perianal abscesses predominantly on the right, measures on right 3.48.810.8 cm, a second component extends across midline into the left perianal region measuring 1.73.9 cm Postoperative day 2 for incision and drainage of perirectal abscess Leukocytosis continues to improve, currently 28.5 Wound culture preliminary finding of gram-negative michela. Anaerobic culture remains pending. Blood cultures remain pending. Antibiotic coverage-Zosyn day 3 Pain control- oxycodone, morphine nausea control- Zofran GI prophylaxis- Protonix Bowel regimen- Colace Incentive spirometry Regular diet Has had new packing replaced today. Continue wound care with daily packing changes. (2) Sepsis Current Visit: Yes Status: Acute Resolved Infection source-perirectal abscess Patient remains afebrile, no tachycardia, no tachypnea Patient does have leukocytosis however he has a history of CLL and believes baseline white blood cell count to be around 20. His leukocytosis continues to decrease. Continue antibiotic coverage with Zosyn day 3 Qualifiers: Sepsis type: sepsis due to unspecified organism Qualified Code(s): A41.9 - Sepsis, unspecified organism (3) Personal history of CLL (chronic lymphocytic leukemia) Current Visit: Yes Status: Acute The patient has a history of CLL Believes white blood cell count baseline to be around 20 Continue to monitor (4) HTN (hypertension) Current Visit: Yes Status: Acute Continue home medication lisinopril Qualifiers: Hypertension type: essential hypertension Qualified Code(s): I10 - Essential (primary) hypertension (5) DVT prophylaxis Current Visit: Yes Status: Acute Subcutaneous heparin Subjective Narrative: Patient seen and examined at bedside today. He states that he is doing well and that pain is controlled. Denies nausea, vomiting, fever, chills, chest pain, shortness of breath, abdominal pain, dysuria, calf pain. He has not yet had a bowel movement but is passing flatus. Objective Vital Signs - Last 8 Hours Temp Pulse Resp BP Pulse Ox 12/17/18 07:26 98.0 F 72 15 126/67 95 12/17/18 04:26 97.8 F 71 15 118/62 94 Intake and Output 12/16/18 12/17/18 12/17/18 23:59 07:59 15:59 Intake Total 1320 / 3540 300 / 540 240 / 540 Output Total 0 / 0 Balance 1320 / 3290 300 / 540 240 / 540 Intake: IV Fluids 1200 / 2600 300 / 300 0.9 % Sodium Chloride 1,000 ML 1000 / 2000 @ 100 mls/hr IVC .Q10H [facility] Rx#: [id number] Ofirmev 1,000 mg/100 ml 1,000 100 / 300 200 / 200 mg In 100 ml @ 400 mls/hr IVPB Q6HR [facility] Rx#:[id number] Zosyn 3.375 GM In 0.9 % Sodium 100 / 300 100 / 100 Chloride (Mini-Bag +) 100 ML @ 25 mls/hr IVPB Q8HR [facility] Rx#: [id number] Oral 120 / 940 0 / 240 240 / 240 Output: Urine 0 / 0 Other: Meal Dinner Breakfast Percent of Meal Consumed 75% 80% # Voids 1 # Bowel Movements 1 - General physical appearance well developed, well nourished, no distress - Eyes PERRL, normal ocular movement - ENT normal mucosa, no hearing loss, no congestion - Neck Neck exam: no masses, trachea midline, no venous distension - Respiratory normal expansion, normal respiratory effort, clear to percussion, clear to auscultation - Cardiovascular Cardiovascular exam: Present: RRR. Absent: no murmurs/rubs/gallops - Labs 12/17/18 08:23 12/16/18 05:43 Consult Discharge Plan - Plan Instructions: Abscess (GEN) Additional Instructions: Daily Wound Care: Remove dressing and packing. Shower with antibacterial soap. Repack with 1/4 inch plain gauze. Cover with a dry dressing. Tape to secure or where depends for drainage collection. Replace dressing after bowel movements. Referrals: Felecia Healy, [employer] MACHINE OPERATOR [Advanced Practice Nurse] - 12/24/18 2:00 pm NONE,PCP [Primary Care Provider] - <Val Rodgers - Last Filed: 12/17/18 12:39> Date of Encounter: 12/17/18 Objective Vital Signs - Last 8 Hours Temp Pulse Resp BP Pulse Ox 12/17/18 11:06 97.9 F 78 15 147/68 92 12/17/18 07:26 98.0 F 72 15 126/67 95 Intake and Output 12/16/18 12/17/18 12/17/18 23:59 07:59 15:59 Intake Total 1320 / 3540 300 / 540 240 / 540 Output Total 0 / 0 Balance 1320 / 3290 300 / 540 240 / 540 Intake: IV Fluids 1200 / 2600 300 / 300 0.9 % Sodium Chloride 1,000 ML 1000 / 2000 @ 100 mls/hr IVC .Q10H [facility] Rx#: [id number] Ofirmev 1,000 mg/100 ml 1,000 100 / 300 200 / 200 mg In 100 ml @ 400 mls/hr IVPB Q6HR [facility] Rx#:[id number] Zosyn 3.375 GM In 0.9 % Sodium 100 / 300 100 / 100 Chloride (Mini-Bag +) 100 ML @ 25 mls/hr IVPB Q8HR [facility] Rx#: [id number] Oral 120 / 940 0 / 240 240 / 240 Output: Urine 0 / 0 Other: Meal Dinner Breakfast Percent of Meal Consumed 75% 80% # Voids 1 1 # Bowel Movements 1 - Labs 12/17/18 08:23 12/16/18 05:43 - Attending Attestation I examined this patient and my medical decision-making was reviewed with the Resident Physician. I agree with the documented findings, disposition and treatment plan as described except to the extent set forth below.
[2018-12-18] MEDS: Acetaminophen IV 1,000 MG/100 ML INFUS..BTL IVPB SCH ×3 (01:04→11:18)
[2018-12-18] MEDS: Piperacillin/Tazobactam 3.375 GM in 0.9 % Sodium Chloride Mini Bag 100 ML IVPB SCH ×2 (01:04→08:05)
[2018-12-18] MEDS: *HR* Heparin 5,000 UNIT/ML VIAL SQ SCH (05:54)
[2018-12-18 07:41] LABS: Hemoglobin 10.2 g/dL (12.9-16.9)
[2018-12-18 07:42] LABS: Hematocrit 31.7 % (37.5-50.1); Mean Corpuscular HGB Conc 32.2 g/dL (31.6-35.5); Mean Corpuscular Hemoglobin 29.8 pg (28.0-33.3); Mean Corpuscular Volume 92.7 fL (83.0-100.0); Mean Platelet Volume 9.3 fL (9.4-12.4); Platelet Count 442 K/mcL (140-400); Red Blood Count 3.42 M/mcL (4.19-5.50); White Blood Count 26.4 K/mcL (4.3-11.1)
[2018-12-18] MEDS: Pantoprazole 40 MG VIAL IVP SCH (08:05)
[2018-12-18 08:28] LABS: Eosinophils # 0.5 K/mcL (0.0-0.6); Lymphocytes # 16.9 K/mcL (0.6-4.6); Monocytes # 1.1 K/mcL (0.0-1.3); Neutrophils # 7.9 K/mcL (1.6-8.9); Reactive Lymphocytes Present (Not Present); Smudge Cells Present (Not Present)
--- NOTE | 2018-12-18 08:30 | Discharge Summary ---
<Madyson Marte - Last Filed: 12/18/18 08:49> - NOTES TO OUTPATIENT PROVIDER Notes to Outpatient Provider: Patient underwent perirectal abscess incision and drainage. He is to have home health for daily packing changes. Wound culture positive for gram-negative rods, blood culture showed no growth to date and anaerobic culture remains pending. Medications include Augmentin for 10 days, Percocet for pain control. Miralax for constipation. Orders not resulted at time of discharge: Pending orders 12/15/18 14:04 Culture,Blood [BC] Stat 12/15/18 17:52 Culture,Anaerobic [RM] Routine Culture,Anaerobic [RM] Routine Culture,Wound [RM] Routine 12/18/18 06:38 CBC [Complete Blood Count] [HEME] AM 0400 12/19/18 04:00 CBC [Complete Blood Count] [HEME] AM 0400 Date of Encounter: 12/18/18 Time of Encounter: 08:26 - Discharge Diagnosis (1) Perianal abscess Priority: Primary Status: Acute (2) Sepsis Priority: Secondary Status: Ruled-out Qualifiers: Sepsis type: sepsis due to unspecified organism Qualified Code(s): A41.9 - Sepsis, unspecified organism (3) 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 (4) HTN (hypertension) Priority: Secondary Status: Chronic Qualifiers: Hypertension type: essential hypertension Qualified Code(s): I10 - Essential (primary) hypertension (5) DVT prophylaxis Priority: Secondary Status: Acute General Surgery Exam Initial Vital Signs Temp Pulse Resp BP Pulse Ox 98.2 F 108 18 159/79 99 12/15/18 12:08 12/15/18 12:08 12/15/18 12:08 12/15/18 12:08 12/15/18 12:08 - General physical appearance well developed, well nourished, no distress - Eyes PERRL, normal ocular movement - Neck no masses, trachea midline, no venous distension - Respiratory normal respiratory effort, clear to auscultation - Cardiovascular Cardiovascular exam: Present: RRR, no murmurs/rubs/gallops. Absent: JVD - Incision Incision: Present: draining (Packing in place), indurated (Significantly improved), open - Neurologic Present: CN 2-12 grossly intact, normal coordination, normal sensation - Psychiatric Psychiatric general surgery: Present: appropriate, oriented to person, oriented to place, oriented to time, speech is normal, memory intact - Hospital Course Hospital course: Mr. Dexter is a 83 year old male who presented to the emergency department with chief complaint perirectal pain as well as constipation. Past medical history of CLL, hypertension, hyperlipidemia, constipation. On presentation patient was afebrile, tachycardic. Labs are significant for leukocytosis of 39. He does have a history CLL and baseline white blood cell count in 20s. Abdominal pelvis CT was performed which revealed a very large perianal abscess predominantly on the right which measures [phone] cm with a second component which extends across the midline into the left perianal region which measures 1.73.9 cm. Patient was started on antibiotic coverage, given 1 dose of vancomycin, continued Zosyn over course of admission. Patient was taken to the OR for incision and drainage of perirectal abscess. The wound cavity was packed. Over the course of admission, the patient had daily wound care with packing changed daily. His leukocytosis continued to decline. His wound culture was positive for gram-negative rods. Anaerobic culture remains pending, blood cultures show no growth to date. Patient's vital signs are stable and he is well for discharge to home. He will have home health care for daily wound packing changes as well as 10 days of Augmentin and 5 days of Percocet for pain. - Time Spent with Patient Total time spent providing and/or coordinating discharge services: - Discharge Medications Prescriptions: New Atorvastatin [Lipitor] 10 mg PO HS tablet Lisinopril [Zestril] 5 mg PO DAILY tablet Amoxicillin/Clavulanate [Augmentin] 875 mg PO BIDWM 10 Days #20 tablet Oxycodone HCl/Acetaminophen [Percocet 5-325 mg Tablet] 1 each PO Q6HR PRN 5 Days #20 tablet PRN Reason: Pain Polyethylene Glycol 3350 [MiraLAX] 17 gm PO DAILY 30 Days #30 powd.pack Continued Cholecalciferol (Vitamin D3) [Vitamin D3] 1,000 unit PO DAILY Docusate [Colace] 100 mg PO DAILY Kiester-3/Dha/Epa/Fish Oil [Fish Oil 1,000 mg Softgel] 1 cap PO DAILY Vitamin B Complex 1 each PO DAILY Losartan Potassium 25 mg PO DAILY Rosuvastatin Calcium 5 mg PO HS Home Medications: Cholecalciferol (Vitamin D3) [Vitamin D3] 1,000 unit PO DAILY 03/15/16 [History] Docusate [Colace] 100 mg PO DAILY 05/31/16 [History] Kiester-3/Dha/Epa/Fish Oil [Fish Oil 1,000 mg Softgel] 1 cap PO DAILY 05/31/16 [History] Vitamin B Complex 1 each PO DAILY 12/05/16 [History] Losartan Potassium 25 mg PO DAILY 12/16/18 [History] Rosuvastatin Calcium 5 mg PO HS 12/16/18 [History] Amoxicillin/Clavulanate [Augmentin] 875 mg PO BIDWM 10 Days #20 tablet 12/18/18 [Rx] Atorvastatin [Lipitor] 10 mg PO HS tablet 12/18/18 [Rx] Lisinopril [Zestril] 5 mg PO DAILY tablet 12/18/18 [Rx] Oxycodone HCl/Acetaminophen [Percocet 5-325 mg Tablet] 1 each PO Q6HR PRN 5 Days #20 tablet 12/18/18 [Rx] Polyethylene Glycol 3350 [MiraLAX] 17 gm PO DAILY 30 Days #30 powd.pack 12/18/18 [Rx] Allergies/Adverse Reactions: Allergy/AdvReac Type Severity Reaction Status Date / Time No Known Allergies Allergy Verified 12/16/18 14:10 Date of admission: 12/15/18 16:03 Primary care physician: PCP NONE Consults: 12/17/18 09:50 Consult to Overhead Distribution Engineer [CONS] Routine Reason for SW Consult: home health care Discharging clinician: Madyson Marte Anticipated date of discharge: 12/18/18 Labs on day of discharge: Labs from last 24 hours 12/18/18 12/17/18 06:38 08:23 WBC 26.4 H 28.5 H RBC 3.42 L 3.32 L Hgb 10.2 L 10.1 L Hct 31.7 L 31.1 L MCV 92.7 93.7 MCH 29.8 30.4 MCHC 32.2 32.5 RDW 14.0 14.2 Plt Count 442 H 392 MPV 9.3 L 9.5 Seg Neutrophils % 32.0 Band Neutrophils % 4.0 Lymphocytes % 62.0 Monocytes % 2.0 Neutrophils # 10.3 H Lymphocytes # 17.7 H Monocytes # 0.6 Nucleated RBCs/100 WBC 0.1 H Reactive Lymphocytes Present A Smudge Cells Present A Platelet Estimate Normal Clumped Platelets Few A Preliminary micro results at discharge 12/15/18 17:52 Anaerobic Culture - Preliminary Abscess Culture is incubating. 12/15/18 17:52 Wound Culture - Preliminary Abscess Gram Negative Angel 12/15/18 14:04 Blood Culture - Preliminary Peripheral Venipuncture Culture is incubating and being continuously monitored for growth. Final report to follow. 12/15/18 14:09 Blood Culture - Preliminary Peripheral Venipuncture Culture is incubating and being continuously monitored for growth. Final report to follow. - Impressions ITS Impressions Abdomen/Pelvis CT 12/15/18 12:33 IMPRESSION: Very large perianal abscess(es) predominantly on the right. No acute intra-abdominal or intrapelvic process evident. Calcific atherosclerotic disease aorta. D/ / Michi Galan / Michi Galan Interpreting Provider: Michi Galan - Patient Status Disposition: Home Health Service Condition: Good Functional capacity at discharge: independent ambulation Overall status at discharge: patient is progressing back to baseline - Discharge Instructions Instructions: Abscess (GEN) Follow Up With: Juan Alberto Arriaga [Partnered Physician] - Felecia Healy ADMINISTRATIVE TECH [Advanced Practice Nurse] - 12/24/18 2:00 pm Additional Instructions: Daily Wound Care: Remove dressing and packing. Shower with antibacterial soap. Repack with 1/4 inch plain gauze. Cover with a dry dressing. Tape to secure or where depends for drainage collection. Replace dressing after bowel movements. - Diet and Activity Activity: resume usual activities as tolerated Diet: regular diet <Val Rodgers - Last Filed: 12/18/18 12:50> Orders not resulted at time of discharge: Pending orders 12/15/18 14:04 Culture,Blood [BC] Stat 12/15/18 17:52 Culture,Anaerobic [RM] Routine Culture,Anaerobic [RM] Routine 12/19/18 04:00 CBC [Complete Blood Count] [HEME] AM 0400 Date of Encounter: 06/18/19 General Surgery Exam Initial Vital Signs Temp Pulse Resp BP Pulse Ox 98.2 F 108 18 159/79 99 12/15/18 12:08 12/15/18 12:08 12/15/18 12:08 12/15/18 12:08 12/15/18 12:08 - Hospital Course Hospital course: Mr. Dexter is a 83 year old male - Time Spent with Patient Total time spent providing and/or coordinating discharge services: Date of admission: 12/15/18 16:03 Primary care physician: PCP NONE Consults: 12/17/18 09:50 Consult to Overhead Distribution Engineer [CONS] Routine Reason for SW Consult: home health care Labs on day of discharge: Labs from last 24 hours 12/18/18 06:38 WBC 26.4 H RBC 3.42 L Hgb 10.2 L Hct 31.7 L MCV 92.7 MCH 29.8 MCHC 32.2 RDW 14.0 Plt Count 442 H MPV 9.3 L Seg Neutrophils % 30.0 Lymphocytes % 64.0 Monocytes % 4.0 Eosinophils % 2.0 Neutrophils # 7.9 Lymphocytes # 16.9 H Monocytes # 1.1 Eosinophils # 0.5 Reactive Lymphocytes Present A Smudge Cells Present A Platelet Estimate Slight increase H Preliminary micro results at discharge 12/15/18 17:52 Anaerobic Culture - Preliminary Abscess At this time, no anaerobic growth is present. The culture will be finalized after 5 days of incubation. 12/15/18 14:04 Blood Culture - Preliminary Peripheral Venipuncture Culture is incubating and being continuously monitored for growth. Final report to follow. 12/15/18 14:09 Blood Culture - Preliminary Peripheral Venipuncture Culture is incubating and being continuously monitored for growth. Final report to follow. - Impressions ITS Impressions Abdomen/Pelvis CT 12/15/18 12:33 IMPRESSION: Very large perianal abscess(es) predominantly on the right. No acute intra-abdominal or intrapelvic process evident. Calcific atherosclerotic disease aorta. D/ / Michi Galan / Michi Galan Interpreting Provider: Michi Galan - Attending Attestation I examined this patient and my medical decision-making was reviewed with the Resident Physician. I agree with the documented findings, disposition and treatment plan as described except to the extent set forth below.
--- NOTE | 2018-12-18 08:59 | Physician Discharge Referral ---
Home Health/Hosp Referral Info Transfer to: Home Health Attending Provider: Val Wagner Provider in Charge Post Discharge: PCP - Diagnosis (1) Perianal abscess Priority: Primary Status: Acute (2) Sepsis Priority: Secondary Status: Ruled-out (3) 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 (4) HTN (hypertension) Priority: Secondary Status: Chronic (5) DVT prophylaxis Priority: Secondary Status: Acute - Respiratory Orders Smoking Cessation: Smoking cessation has been advised. For more information, call the [employer] Tobacco Quit Line at 3-218-XBJS-NOW. - Dressing/Wound Care Site: Perirectal abscess Type of Dressing/Treatments w/Frequency: Daily Wound Care: Remove dressing and packing. Shower with antibacterial soap. Repack with 1/4 inch plain gauze. Cover with a dry dressing. Tape to secure or wear depends for drainage collection. Replace dressing after bowel movements. - Diet/Nutrition Diet/Nutrition Orders: Regular - Activity Activity Orders: Ambulate - Services Needed Following services are medically necessary services: Nursing - Transfer Medications Prescriptions: Amoxicillin/Clavulanate [Augmentin] 875 mg PO BIDWM 10 Days #20 tablet Polyethylene Glycol 3350 [MiraLAX] 17 gm PO DAILY 30 Days #30 powd.pack Oxycodone HCl/Acetaminophen [Percocet 5-325 mg Tablet] 1 each PO Q6HR PRN 5 Days #20 tablet PRN Reason: Pain Home Medications: Cholecalciferol (Vitamin D3) [Vitamin D3] 1,000 unit PO DAILY 03/15/16 [History] Docusate [Colace] 100 mg PO DAILY 05/31/16 [History] Russell-3/Dha/Epa/Fish Oil [Fish Oil 1,000 mg Softgel] 1 cap PO DAILY 05/31/16 [History] Vitamin B Complex 1 each PO DAILY 12/05/16 [History] Losartan Potassium 25 mg PO DAILY 12/16/18 [History] Rosuvastatin Calcium 5 mg PO HS 12/16/18 [History] Amoxicillin/Clavulanate [Augmentin] 875 mg PO BIDWM 10 Days #20 tablet 12/18/18 [Rx] Atorvastatin [Lipitor] 10 mg PO HS tablet 12/18/18 [Rx] Lisinopril [Zestril] 5 mg PO DAILY tablet 06/18/19 [Rx] Oxycodone HCl/Acetaminophen [Percocet 5-325 mg Tablet] 1 each PO Q6HR PRN 5 Days #20 tablet 12/18/18 [Rx] Polyethylene Glycol 3350 [MiraLAX] 17 gm PO DAILY 30 Days #30 powd.pack 12/18/18 [Rx] Allergies/Adverse Reactions: Allergy/AdvReac Type Severity Reaction Status Date / Time No Known Allergies Allergy Verified 12/16/18 14:10 Certification: Further, I certify that my clinical findings support that this patient is homebound (i.e. absences from home require considerable and taxing effort and are for medical reasons or taoism services or infrequently or short duration when for other reasons) because: Homebound Reason: Leaving home requires considerable and taxing effort due to condition Attestation: My signature below is to certify that this patient is under my care and that I, or nurse practitioner, or a physician's legal administrative assistant working with me, has a [id number] encounter with this patient.
[2018-12-18 12:21] VITALS: BP 146/66
== END 2018-12-18 13:42 | disposition home health service (06) | DRG 348 ==
LOC: 3ANU 12:08 → EMEROOARM 12:08 → 3ANU 16:43
PROVIDERS: ADMIT Surgery; ATTEND Surgery